=== PATIENT | male | born 1980 | race Caucasian/White ===

== ENCOUNTER 2018-06-01 09:25 | Day surgery (SDC) | payer OTHER ==
[~2018-06-01 09:25] MED LIST: DESFLURANE 15 MIN; PROPOFOL 200 MG INJ
[2018-06-01] MEDS ORDERED: ROPIVACAINE 0.5 % 30 ML VIAL ×2 (13:42→14:42)
[2018-06-01] MEDS ORDERED: KETOROLAC 30 MG INJ (13:43)
[2018-06-01] MEDS ORDERED: MIDAZOLAM 1 MG/ML 2 ML INJ (13:43)
[2018-06-01] MEDS ORDERED: METOCLOPRAMIDE 10 MG INJ (13:43)
[2018-06-01] MEDS ORDERED: ONDANSETRON 4 MG INJ (13:43)
[2018-06-01] MEDS ORDERED: FENTAnyl 50 MCG/ML VIAL (13:43)
[2018-06-01] MEDS ORDERED: NEOSTIGMINE 3 MG/3 ML SYRINGE (13:45)
[2018-06-01] MEDS ORDERED: GLYCOPYRROLATE 0.4 MG INJ (13:45)
[2018-06-01] MEDS ORDERED: HYDROmorphONE 1 MG/5 ML IV SYRINGE IV (14:30)
[2018-06-01] MEDS ORDERED: ONDANSETRON 4 MG INJ IV ×2 (14:30→17:30)
[2018-06-01] MEDS ORDERED: OXYCODONE/ACETAMINOPHEN (5/325) TAB PO (14:30)
[2018-06-01] MEDS ORDERED: DIPHENHYDRAMINE 50 MG INJ IV (14:30)
[2018-06-01] MEDS ORDERED: BUPIVACAINE 0.5%/EPI (SDV) 30 ML INJ (14:42)
[2018-06-01] MEDS ORDERED: POLYMYXIN/BACITRACIN 1L IRRIG (14:42)
[2018-06-01] MEDS ORDERED: CEFAZOLIN 1 GM INJ (14:54)
[2018-06-01] MEDS ORDERED: HYDROmorphONE 2 MG/ML SYG (14:58)
[2018-06-01] MEDS: EPINEPHrine 1 MG/ML 30 ML INJ ZFS (16:25)
[2018-06-01] MEDS ORDERED: METOPROLOL 5 MG INJ (17:01)
[2018-06-01] MEDS: HYDROmorphONE 1 MG/5 ML IV SYRINGE IV ×2 (17:27→17:50)
[2018-06-01] MEDS ORDERED: morphine 4 MG/ML VIAL IV (17:30)
[2018-06-01] MEDS ORDERED: HYDROCODONE/APAP (5/325) TAB PO ×2 (17:30)
[2018-06-01] MEDS: MEPERIDINE 25 MG INJ IV (17:34)
[2018-06-01] MEDS: OXYCODONE/ACETAMINOPHEN (5/325) TAB PO (18:22)
== END 2018-06-01 19:00 | disposition home or self-care (01) ==
LOC: SDS 09:25
DX: S83.241A Other tear of medial meniscus, current injury, right knee, initial encounter (principal); S83.511A Sprain of anterior cruciate ligament of right knee, initial encounter; X58.XXXA Exposure to other specified factors, initial encounter; Y93.89 Activity, other specified; Y92.89 Other specified places as the place of occurrence of the external cause; Y99.8 Other external cause status
CPT/HCPCS: 29881; 86850; 86900; 86901